=== PATIENT | female | born 1945 | race Two or more races ===

== ENCOUNTER 2024-09-02 21:44 | Emergency (ER) | payer MEDICARE, MEDICAID, SELFPAY ==
[2024-09-02 21:59] VITALS: BP 169/75; PULSE 84; RESP 19; TEMP 36.6; O2SAT 98; BMI 27.8
--- NOTE | 2024-09-02 22:14 | XR_ITS ---
Examination: AP chest single view Technique one AP portable upright chest single view Exam date and time: September 02, 2024 10:32 PM Indications: Chest pain shortness of breath beginning 2 hours ago. Findings: Subsegmental atelectasis left base Normal heart size No pneumonia or pulmonary edema Prominent osteopenia Impression: No pneumonia or pulmonary edema
--- NOTE | 2024-09-02 22:14 | PD.EDRME ---
Rapid Medical Screening Exam E Arrival date/time: 09/02/24 21:44 79F with history of HTN and HLD presents to ED with 2 hours of CP and SOB. Chief Complaint: Chest Pain Vital signs: Vital Signs Temperature 97.8 F 09/02/24 21:59 Pulse Rate 84 09/02/24 21:59 Respiratory Rate 19 09/02/24 21:59 Blood Pressure 169/75 H 09/02/24 21:59 Pulse Oximetry (%) 98 09/02/24 21:59 Oxygen Delivery Method Room Air 09/02/24 21:59
[2024-09-02 22:53] LABS: Basophils % (Auto) 0 % (0-2.5); Eosinophils # (Auto) 0.1 Thou/mm3 (0.0-0.5); Eosinophils % (Auto) 2 % (0-10); Hematocrit 33.2 % (36.0-46.0); Immature Granulocytes % (Auto) 0 % (0-0); Immature Granulocytes Auto 0.01 Thou/mm3 (0.00-0.00); Lymphocytes # (Auto) 1.3 Thou/mm3 (1.0-4.8); Lymphocytes % (Auto) 18 % (10-50); Mean Corpuscular HGB Conc 33.1 g/dl (31.0-37.0); Mean Corpuscular Hemoglobin 28.5 pg (25.0-35.0); Mean Corpuscular Volume 86 fL (80-100); Monocytes # (Auto) 0.5 Thou/mm3 (0.0-0.8); Monocytes % (Auto) 7 % (0-12); Neutrophils # (Auto) 5.5 Thou/mm3 (1.8-7.7); Neutrophils % (Auto) 74 % (37-80); Nucleated Red Blood Cell % 0 /100 WBC (0); Platelet Count 154 Thou/mm3 (140-440); Red Blood Count 3.86 Miln/mm3 (4.00-5.20); White Blood Count 7.5 Thou/mm3 (3.6-11.0)
[2024-09-02 23:08] LABS: Partial Thromboplastin Time 26.6 Seconds (22.0-36.0); Prothrombin Time 10.5 Seconds (9.0-12.2)
[2024-09-02 23:14] LABS: Alanine Aminotransferase 15 U/L (10-49); Albumin, Serum 4.4 gm/dL (3.4-4.8); Albumin/Globulin Ratio 1.5 (1.2-2.2); Alkaline Phosphatase 103 U/L (46-116); Anion Gap 7 (7-16); Aspartate Amino Transferase 20 U/L (0-34); BUN/Creatinine Ratio 19 Ratio (12-20); Bilirubin,Total 0.4 mg/dL (0.3-1.2); Blood Urea Nitrogen 17 mg/dL (9-23); Calcium 10.1 mg/dL (8.3-10.6); Calcium (Corrected) 10.1 mg/dL (8.5-10.1); Carbon Dioxide 23.6 mMol/L (20.0-31.0); Chloride 103 mMol/L (98-107); Creatinine (Component) 0.9 mg/dL (0.6-1.3); Globulin 2.9 gm/dL (2.3-3.5); Glucose 193 mg/dL (74-106); Osmolality,Calculated 274 (275-295); Potassium 3.5 mMol/L (3.4-5.1); Sodium 134 mMol/L (136-145); Total Protein 7.3 gm/dL (5.7-8.2); Troponin I < 0.020 ng/mL (0.0-0.045); eGFR > 60 See Note
[2024-09-03 00:02] VITALS: BP 153/92; PULSE 99; RESP 20; O2SAT 99
[2024-09-03 02:04] LABS: Troponin I < 0.020 ng/mL (0.0-0.045)
--- NOTE | 2024-09-03 02:16 | EDNOTE_ITS ---
ED Chest Pain RME/HPI General Chief Complaint: Chest Pain Stated Complaint: CHEST PAIN RADIATING TO BACK Arrival date/time: 09/02/24 21:44 Limitations: no limitations RME / HPI RME / HPI narrative: 09/02/24 21:44 79F with history of HTN and HLD presents to ED with 2 hours of CP and SOB. ----- Dr. [facility] Main ED Evaluation: 79-year-old female with history of hypertension and high cholesterol coming in with epigastric pain with radiation to her back that started earlier today when she was at [employer]. The pain was intermittent and currently still present but less in severity. Minimal associated shortness of breath with the pain. Positive nausea without vomiting. No diarrhea. No syncope or palpitations. The patient has had pain like this in the past with the daughter does not recall any type of workup No sick contacts. Related Data Home Medications ?Medication ?Instructions ?Recorded ?Confirmed losartan 50 mg tablet 50 mg PO QDAY 03/04/19 03/04/19 pantoprazole 40 mg tablet,delayed 40 mg PO DAILY 03/04/19 03/04/19 release Allergies Allergy/AdvReac Type Severity Reaction Status Date / Time Penicillins Allergy Verified 03/04/19 08:45 Review of Systems Review of Systems Systems Reviewed: All systems reviewed, normal except as documented Past Medical History Past Medical History CARDIAC: Positive Hypertension; Negative Congestive Heart Failure RESPIRATORY: Negative Chronic Obstructive Pulmonary Disease (COPD) GASTROINTESTINAL: Positive Ulcer and Gastroesophageal Reflux Disease GENITOURINARY: Negative Renal Disease ENDOCRINE: Negative Diabetes Mellitus Type 1 or Diabetes Mellitus Type 2 Social History SMOKING STATUS: Never smoker SUBSTANCE USE: does not use ED Exam Narrative Physical exam: Patient resting comfortably. General Limitations: Present no limitations General appearance: Present alert and in no apparent distress Head Head exam: Present atraumatic Eye Eye exam: Present normal appearance and PERRL; Absent scleral icterus or conjunctival injection ENT ENT exam: Present normal exam, normal oropharynx and mucous membranes moist Neck Neck exam: Present normal inspection and full ROM Chest Chest inspection: Present normal inspection and symmetric chest wall rise Respiratory Respiratory exam: Present normal lung sounds bilaterally Cardiovascular Cardiovascular exam: Present regular rate, normal rhythm and normal heart sounds Abdominal Exam Abdominal exam: Present soft, guarding and normal bowel sounds; Absent distention, tenderness, rebound or rigidity Extremities Exam Extremities exam: Present normal inspection and full ROM Back Exam Back exam: Present normal inspection and full ROM Neurological Exam Neurological exam: Present alert and other (Following all commands when she is awake) Psychiatric Psychiatric exam: Present normal affect and normal mood Skin Skin exam: Present warm, dry, intact and normal color Course Course Course Narrative: CXR is ordered for determining the etiology of chest pain. Quality Measures none Orders Category Date Time Status CT Screening NOW Care 09/03/24 02:18 Active EKG (ED ONLY) *Do not use* NOW Care 09/02/24 21:[address] abdomen pelvis w con Stat Exams 09/03/24 02:17 Stop Req EKG (ED Only) Stat Exams 09/02/24 21:47 Ordered XR chest 1V portable Stat Exams 09/02/24 22:14 Completed CBC Stat Lab 09/02/24 22:30 Completed Comprehensive Metabolic Panel Stat Lab 09/02/24 22:30 Completed Partial Thromboplastin Time Stat Lab 09/02/24 22:30 Completed Prothrombin Time with INR Stat Lab 09/02/24 22:30 Completed Troponin I Stat Lab 09/02/24 22:30 Completed Troponin I Stat Lab 09/03/24 01:38 Completed Morphine Inj Med 09/03/24 02:21 Discontinued 4 mg IVP X1 ONE Ondansetron Inj [Zofran Inj] Med 09/03/24 02:21 Discontinued 4 mg IV X1 ONE Reevaluation(s) Reevaluation #1: Patient is still complaining of some mild chest pain. Morphine is given. Discussed with the daughter and CT scan is ordered Time: 02:24 Vital Signs Vital signs: Vital Signs Temperature 97.8 F 09/02/24 21:59 Pulse Rate 84 09/02/24 21:59 Respiratory Rate 19 09/02/24 21:59 Blood Pressure 169/75 H 09/02/24 21:59 Pulse Oximetry (%) 98 09/02/24 21:59 Oxygen Delivery Method Room Air 09/02/24 21:59 Pulse ox is 98% on room air, which is normal according to my interpretation. Procedures -ED EKG Interpretation #1: Date of EK09/02/24 Time of EK:55 Rate: 80 Interpretation: Interpreted by me Additional EKG comment: Normal sinus rhythm. Low voltage. Right bundle branch block. QTc 402. Similar normal sinus rhythm from previous EKG. Impression no ST elevation FL. No depressions. Chest Pain MDM Narrative MDM Narrative:: Differential diagnoses include reflux, FL, non-STEMI, gallbladder disease, hypertensive urgency or emergency CT abdomen pelvis ordered. Patient does not want to wait any longer and does not want to get the CT scan performed. Risks versus benefits explained. Patient is signing out against medical advice. Patient data External records reviewed:: [facility] previous records (Per chart review, patient was seen here on 04/13/24 for weakness.) Clinical information provided by:: patient Social determinants that could affect healthcare access:: none Patient has the following chronic illnesses:: HTN, GERD How is presenting disease/condition affected by chronic disease/condition?: uneffected by Evaluation data The following diagnostics were reviewed and interpreted by me:: lab results, radiology exam(s) and EKG tracing(s) Lab and/or radiology exams considered but not ordered:: none Interpretation Summary: CBC is normal, CMP is normal, initial and repeat troponins are normal, PTT is normal, PT and INR are normal, according to my interpretation. ------ I have personally reviewed the radiology data and agree with the radiologist's interpretation below: [facility] Report Signed Patient: KEITH SNYDER Record#: [id number] Birthdate: 1945 Age/Sex: 79 / F Location: [facility] Attending Dr: Ordering Physician: Herrera Stephenson PA-C Date of Service: 09/02/24 Procedure(s): XR chest 1V portable Accession Number(s): [id number] cc: Manjinder Kirkland PA-C; Kevin Cohen MD; Herrera Stephenson PA-C~ Examination: AP chest single view Technique one AP portable upright chest single view Exam date and time: September 02, 2024 10:32 PM Indications: Chest pain shortness of breath beginning 2 hours ago. Findings: Subsegmental atelectasis left base Normal heart size No pneumonia or pulmonary edema Prominent osteopenia Impression: No pneumonia or pulmonary edema Dictated By: Kevin Cohen MD Signed By: <Electronically signed by Kevin Cohen MD in OV> 09/02/24 2311 Medications / Prescriptions Medications or Prescriptions considered but not ordered:: none Medication administrations:: Medication Administration History Discontinued Medications Morphine Sulfate (Morphine Sulf Inj 10 Mg/Ml Vial) 4 mg IVP X1 ONE Stop: 09/03/24 02:22 Ondansetron HCl (Ondansetron Inj 2 Mg/Ml Inj 2 Ml) 4 mg IV X1 ONE; Protocol Stop: 09/03/24 02:22 see above, if any Consultations Consultation(s) initiated? (list below): No Diagnosis Chest Pain Differential Diagnosis: st elevation myocardial infarction and other (reflux, NSTEMI, gallbladder disease, hypertensive urgency, hypertensive emergency) Most likely diagnosis given after review of the tests above:: see below Admission Indicated Admission indicated?: not indicated Admission Request Was there a request for admission?: No Disposition Plan Disposition Plan: other (specify) (Patient signed out AMA.) Discharge Plan Plan Patient Disposition: HOME (Self Care) Patient condition on transfer: Stable Prescriptions/Referrals Prescriptions/Med Rec: No Action pantoprazole 40 mg Tablet,Delayed Release (Dr/Ec) 40 mg PO DAILY losartan 50 mg Tablet 50 mg PO QDAY Referrals: Manjinder Kirkland PA-C [Primary Care Provider] - In 1 week Problem List Clinical Impression: Abdominal pain Patient/Caregiver Discharge Instructions Print Language: [place] Stand Alone Forms: [employer] Info., Patient Portal Info Letter
--- NOTE | 2024-09-03 03:07 | PC.NURSE ---
Patient refused to have ct -scan and IV meds. Provider was notified that patient refused and signed AMA form. Patient was explained the risk and benefit of leaving AMA.
== END 2024-09-03 03:12 | disposition left against medical advice (07) ==
PROVIDERS: Physician Assistant; Emergency Provider Emergency Medicine; PCP Physician Assistant
DX: R10.9 Unspecified abdominal pain (principal); R07.9 Chest pain, unspecified; R06.02 Shortness of breath; I10 Essential (primary) hypertension; R94.31 Abnormal electrocardiogram [ECG] [EKG]; Z53.29 Procedure and treatment not carried out because of patient's decision for other reasons
CPT/HCPCS: 36415; 71045; 80053; 84484; 85025; 85610; 85730; 93005; 99283